=== PATIENT | female | born 1990 | race Caucasian/White ===

== ENCOUNTER 2016-06-13 08:24 | Emergency (ER) | payer OTHER ==
[~2016-06-13] VITALS: Ht 154.9 cm; Wt 80.7 kg
[2016-06-13 08:54] LABS: HEMATOCRIT 38.9 % (36.0-46.0); MCH 28.5 PG (29.0-34.0); MCHC 33.2 G/DL (30.0-36.0); MCV 85.9 FL (83-99); MEAN PLAT.VOLUME 10.6 uM^3 (9.5-12.4); PLATELET COUNT 197 K/uL (156-360); RBC DIS.WIDTH-CV 12.3 % (11.8-14.6); RBC DIS.WIDTH-SD 38.5 % (39-53); RED BLOOD COUNT 4.53 M/uL (3.80-5.20); WHITE BLOOD COUNT 4.7 K/uL (4.1-10.2)
[2016-06-13 09:05] LABS: CHLORIDE 105 mEq/L (99-109); POTASSIUM 3.4 mEq/L (3.7-5.4); SODIUM 138 mEq/L (136-147)
[2016-06-13 09:06] LABS: ADD MIUA? YES; BILIRUBIN NEGATIVE; BLOOD NEGATIVE; COLOR YELLOW ((YELLOW)); GLUCOSE (STRIP) NEGATIVE; KETONES NEGATIVE; LEUKOCYTES NEGATIVE; NITRITE NEGATIVE; PROTEIN (STRIP) NEGATIVE; SPECIFIC GRAVITY 1.031 (1.000-1.030)
[2016-06-13 09:07] LABS: GLUCOSE 92 mg/dL (70-99)
[2016-06-13 09:08] LABS: ANION GAP 10 MEQ/L (2-14)
[2016-06-13 09:09] LABS: TOTAL BILIRUBIN 0.9 mg/dL (0.0-1.0)
[2016-06-13 09:11] LABS: ALKALINE PHOSPHATASE 56 IU/L (3-129)
[2016-06-13 09:12] LABS: UREA NITROGEN (BUN) 12 mg/dL (9-23)
[2016-06-13 09:14] LABS: LIPASE 24 U/L (1.0-51.0)
[2016-06-13 09:15] LABS: BACTERIA NONE SEEN /HPF; EPITHELIAL CELLS RARE /HPF; MUCUS 1+ /LPF; RED BLOOD CELLS 0-5 /HPF (0-5); URIC ACID CRYSTALS 1+ /HPF; WHITE BLOOD CELLS 0-5 /HPF (0-5)
[2016-06-13 09:15] LABS: GFR ESTIMATE (CALCULATED) > 59 mL/min/
[2016-06-13 09:20] LABS: QUANTITATIVE HCG < 4.0 MIU/ML
[2016-06-13] MEDS ORDERED: ZOFRAN ODT4 MG PO (10:02)
[2016-06-13] MEDS ORDERED: PERCOCET 5/31 TABLET PO (10:02)
[2016-06-13 10:46] VITALS: BP 116/85
== END 2016-06-13 10:48 | disposition home or self-care (01) ==
LOC: EME 08:24
PROVIDERS: Nurse Practitioner Family
DX: K80.20 Calculus of gallbladder without cholecystitis without obstruction (principal); F17.200 Nicotine dependence, unspecified, uncomplicated
CPT/HCPCS: 71020; 76705; 80053; 81003; 83690; 84702; 85027; 99281; 99284; J1885; J2405; J7030